=== PATIENT | female | born 1980 | race Caucasian/White ===

== ENCOUNTER 2017-05-21 11:17 | Emergency (ER) | payer BC, OTHER ==
[2017-05-21] MEDS ORDERED: SODIUM CHLORIDE 0.9% 1,000 ML IV STA (11:52)
[2017-05-21] MEDS ORDERED: ONDANSETRON 4 MG/2 ML VIAL IVP STA (11:52)
[2017-05-21] MEDS ORDERED: HYDROmorphone 1 MG/ML 1 ML SYRINGE IVP STA ×2 (11:52→14:59)
--- NOTE | 2017-05-21 11:54 | ED ---
General Adult HPI - General Chief complaint: Abdominal Pain Stated complaint: Abd.pain-came from [facility] Time Seen by Provider: 05/21/17 11:41 Source: patient, RN notes reviewed Mode of arrival: ambulatory Limitations: no limitations - History of Present Illness Initial comments: Patient 37-year-old female who presents emergency room today with chief complaint of lower abdominal pain that started this morning. Patient does admit to pain that comes and goes. She states located lower abdomen. Does admit that she feels a little bit of pain in the right side of her lower back as well. She denies any injury or any trauma. States that she's currently on her menstrual cycle and this feels somewhat similar to cramps but much more severe. Patient denies any other complaints or symptoms. Patient denies any recent fever, chills, shortness of breath, chest pain, back pain, numbness or tingling, dysuria or hematuria, constipation or diarrhea, headaches or visual changes, or any other complaints. - Related Data Home Medications Medication Instructions Recorded Confirmed Thyroid,Pork [[place] Thyroid] 60 mg PO DAILY 05/21/17 05/21/17 Previous Rx's Medication Instructions Recorded Hydrocodone/Acetaminophen [[place] 1 each PO Q6HR PRN #20 tab 05/21/17 5-325] Ibuprofen [Motrin] 800 mg PO Q6HR #30 tab 05/21/17 Ondansetron Odt [Zofran ODT] 4 mg PO Q8HR PRN #20 tab 05/21/17 Allergies Allergy/AdvReac Type Severity Reaction Status Date / Time No Known Allergies Allergy Verified 05/21/17 11:39 Review of Systems ROS Statement: Those systems with pertinent positive or pertinent negative responses have been documented in the HPI. ROS Other: All systems not noted in ROS Statement are negative. Past Medical History Past Medical History: No Reported History History of Any Multi-Drug Resistant Organisms: None Reported Past Surgical History: Section Past Psychological History: No Psychological Hx Reported Smoking Status: Never smoker Past Alcohol Use History: None Reported Past Drug Use History: None Reported General Exam - General Exam Comments Initial Comments: General: The patient is awake and alert, in mild distress. Eye: Pupils are equal, round and reactive to light, extra-ocular movements are intact. No nystagmus. There is normal conjunctiva bilaterally. No signs of icterus. Ears, nose, mouth and throat: There are moist mucous membranes and no oral lesions. Neck: The neck is supple, there is no tenderness or JVD. Cardiovascular: There is a regular rate and rhythm. No murmur, rub or gallop is appreciated. Respiratory: Lungs are clear to auscultation, respirations are non-labored, breath sounds are equal. No wheezes, stridor, rales, or rhonchi. Gastrointestinal: Normal appearance abdomen. Normal bowel sounds. Abdomen soft on palpation per patient does have tenderness minimal lower abdomen. No rebound or guarding. No CVA tenderness. Musculoskeletal: Normal ROM, no tenderness. Strength 5/5. Sensation intact. Pulses equal bilaterally 2+. Neurological: A&O x 3. CN II-XII intact, There are no obvious motor or sensory deficits. Coordination appears grossly intact. Speech is normal. Skin: Skin is warm and dry and no rashes or lesions are noted. Psychiatric: Cooperative, appropriate mood & affect, normal judgment. Limitations: no limitations Course Vital Signs 05/21/17 05/21/17 11:22 13:38 Temperature 97.0 F L Pulse Rate 95 54 L Respiratory 18 20 Rate Blood Pressure 182/86 138/59 O2 Sat by Pulse 95 97 Oximetry Medical Decision Making - Medical Decision Making Case discussed in detail with attending physician Dr. Singletary. Patient's ultrasound reviewed and does show possible ovarian cyst on the right. Patient CT of the abdomen and pelvis shows gallstones no evidence of cholecystitis. Patient has no pain in the right upper quadrant. Tenderness lower abdomen patient is currently on her menstrual cycle. She denies any complains currently. Patient will be treated for ovarian cyst advised follow-up the family doctor over the next 2 days. Return to the emergency room symptoms increase or worsen or for any concerns - Lab Data Result diagrams: 05/21/17 11:58 05/21/17 11:58 Lab Results 05/21/17 05/21/17 05/21/17 Range/Units 11:58 11:58 11:58 WBC 8.0 (3.8-10.6) k/uL RBC 4.60 (3.80-5.40) m/uL Hgb 13.7 (11.4-16.0) gm/dL Hct 41.4 (34.0-46.0) % MCV 90.0 (80.0-100.0) fL MCH 29.7 (25.0-35.0) pg MCHC 33.0 (31.0-37.0) g/dL RDW 13.1 (11.5-15.5) % Plt Count 258 (150-450) k/uL Neutrophils % 63 % Lymphocytes % 26 % Monocytes % 5 % Eosinophils % 3 % Basophils % 1 % Neutrophils # 5.1 (1.3-7.7) k/uL Lymphocytes # 2.1 (1.0-4.8) k/uL Monocytes # 0.4 (0-1.0) k/uL Eosinophils # 0.2 (0-0.7) k/uL Basophils # 0.1 (0-0.2) k/uL Sodium 139 (137-145) mmol/L Potassium 4.2 (3.5-5.1) mmol/L Chloride 103 (98-107) mmol/L Carbon Dioxide 28 (22-30) mmol/L Anion Gap 8 mmol/L BUN 14 (7-17) mg/dL Creatinine 0.81 (0.52-1.04) mg/dL Est GFR (MDRD) Af Amer >60 (>60 ml/min/1.73 sqM) Est GFR (MDRD) Non-Af >60 (>60 ml/min/1.73 sqM) Glucose 122 H (74-99) mg/dL Calcium 9.5 (8.4-10.2) mg/dL Total Bilirubin 0.3 (0.2-1.3) mg/dL AST 26 (14-36) U/L ALT 39 (9-52) U/L Alkaline Phosphatase 60 (38-126) U/L Total Protein 7.1 (6.3-8.2) g/dL Albumin 4.1 (3.5-5.0) g/dL Amylase 40 (30-110) U/L Lipase 110 (23-300) U/L Urine Color Urine Appearance (Clear) Urine pH (5.0-8.0) Ur Specific [place] (1.001-1.035) Urine Protein (Negative) Urine Glucose (UA) (Negative) Urine Ketones (Negative) Urine Blood (Negative) Urine Nitrite (Negative) Urine Bilirubin (Negative) Urine Urobilinogen (<2.0) mg/dL Ur Leukocyte Esterase (Negative) Urine HCG, Qual Not Detected (Not Detectd) 05/21/17 Range/Units 11:58 WBC (3.8-10.6) k/uL RBC (3.80-5.40) m/uL Hgb (11.4-16.0) gm/dL Hct (34.0-46.0) % MCV (80.0-100.0) fL MCH (25.0-35.0) pg MCHC (31.0-37.0) g/dL RDW (11.5-15.5) % Plt Count (150-450) k/uL Neutrophils % % Lymphocytes % % Monocytes % % Eosinophils % % Basophils % % Neutrophils # (1.3-7.7) k/uL Lymphocytes # (1.0-4.8) k/uL Monocytes # (0-1.0) k/uL Eosinophils # (0-0.7) k/uL Basophils # (0-0.2) k/uL Sodium (137-145) mmol/L Potassium (3.5-5.1) mmol/L Chloride (98-107) mmol/L Carbon Dioxide (22-30) mmol/L Anion Gap mmol/L BUN (7-17) mg/dL Creatinine (0.52-1.04) mg/dL Est GFR (MDRD) Af Amer (>60 ml/min/1.73 sqM) Est GFR (MDRD) Non-Af (>60 ml/min/1.73 sqM) Glucose (74-99) mg/dL Calcium (8.4-10.2) mg/dL Total Bilirubin (0.2-1.3) mg/dL AST (14-36) U/L ALT (9-52) U/L Alkaline Phosphatase (38-126) U/L Total Protein (6.3-8.2) g/dL Albumin (3.5-5.0) g/dL Amylase (30-110) U/L Lipase (23-300) U/L Urine Color Yellow Urine Appearance Clear (Clear) Urine pH 6.0 (5.0-8.0) Ur Specific [place] 1.031 (1.001-1.035) Urine Protein Trace H (Negative) Urine Glucose (UA) Negative (Negative) Urine Ketones Negative (Negative) Urine Blood Negative (Negative) Urine Nitrite Negative (Negative) Urine Bilirubin Negative (Negative) Urine Urobilinogen <2.0 (<2.0) mg/dL Ur Leukocyte Esterase Negative (Negative) Urine HCG, Qual (Not Detectd) Disposition Clinical Impression: Ovarian cyst Disposition: HOME SELF-CARE Condition: Good Instructions: Ovarian Cyst (ED) Additional Instructions: Please use medication as discussed. Please follow-up with family doctor in the next 2 days of symptoms have not improved. Please return to emergency room if the symptoms increase or worsen or for any other concerns. Prescriptions: Hydrocodone/Acetaminophen [[place] 5-325] 1 each PO Q6HR PRN #20 tab PRN Reason: Pain Ibuprofen [Motrin] 800 mg PO Q6HR #30 tab Ondansetron Odt [Zofran ODT] 4 mg PO Q8HR PRN #20 tab PRN Reason: Nausea Referrals: Jazmin May MD [Primary Care Provider] - 1-2 days Time of Disposition: 15:03
[2017-05-21 12:12] LABS: Basophils # (A) 0.1 k/uL (0-0.2); Basophils % (A) 1 %; CH 29.9; CHCM 33.4; Eosinophils # (A) 0.2 k/uL (0-0.7); Eosinophils % (A) 3 %; HCT 41.4 % (34.0-46.0); HDW 2.42; HGB 13.7 gm/dL (11.4-16.0); Luc # (Auto) 0.17; Luc % (Auto) 2; Lymphocytes # (A) 2.1 k/uL (1.0-4.8); Lymphocytes % (A) 26 %; MCH 29.7 pg (25.0-35.0); Mean Platelet Volume 7.5; Monocytes # (A) 0.4 k/uL (0-1.0); Monocytes % (A) 5 %; Neutrophils # (A) 5.1 k/uL (1.3-7.7); Neutrophils % (A) 63 %; RDW 13.1 % (11.5-15.5); WBC (Perox) 8.03
[2017-05-21 12:16] LABS: Appearance,Urine Clear (Clear); Bilirubin,Urine Negative (Negative); Glucose,Urine (UA) Negative (Negative); Ketones,Urine Negative (Negative); Leukocyte Esterase,Urine Negative (Negative); Nitrite,Urine Negative (Negative); Protein,Urine Trace (Negative); Specific Gravity,Urine 1.031 (1.001-1.035); UA Billing (MACRO vs. MICRO) CHEM; Urobilinogen,Urine <2.0 mg/dL (<2.0)
[2017-05-21 12:21] LABS: ALT 39 U/L (9-52); AST 26 U/L (14-36); Alkaline Phosphatase 60 U/L (38-126); Amylase 40 U/L (30-110); Anion Gap 8 mmol/L; Blood Urea Nitrogen 14 mg/dL (7-17); Calcium 9.5 mg/dL (8.4-10.2); Carbon Dioxide 28 mmol/L (22-30); Chloride 103 mmol/L (98-107); Glucose 122 mg/dL (74-99); Non-African American GFR(MDRD) >60 (>60 ml/min/1.73 sqM); Potassium 4.2 mmol/L (3.5-5.1); Sodium 139 mmol/L (137-145); Total Bilirubin 0.3 mg/dL (0.2-1.3); Total Protein 7.1 g/dL (6.3-8.2)
--- NOTE | 2017-05-21 13:31 | US ---
EXAMINATION TYPE: US transvaginal DATE OF EXAM: 05/21/2017 COMPARISON: NONE CLINICAL HISTORY: pain,cramping TECHNIQUE: Transvaginal (TV) Date of LMP: yesterday, however previous LMP 6 months ago EXAM MEASUREMENTS: Uterus: 10.0 x 4.3 x 5.4 cm Endometrial Stripe: 1.3 cm Right Ovary: 3.0 x 2.7 x 2.8 cm Left Ovary: 3.7 x 2.1 x 1.8 cm 1. Uterus: wnl 2. Endometrium: hypoechoic area in endocervical canal and JAKE, probable blood measuring 1.7cm 3. Right Ovary: wnl 4. Left Ovary: wnl Spectral, color and waveform doppler imaging shows good arterial and venous flow within the ovaries . 5. Bilateral Adnexa: wnl 6. Posterior cul-de-sac: wnl Uterus is markedly heterogeneous. Endometrium is poorly defined measuring up to 13 mm in thickness. M ore prominent hypoechoic area centrally lower uterine segment could reflect residual blood product. N o free fluid is seen in pelvis. Both ovaries are seen. Right ovary is slightly more rounded, cannot exclude 2.9 cm hemorrhagic cyst a t this level. IMPRESSION: Suspect some residual blood product in the central endometrium lower uterine segment. A dvise ultrasound follow-up to further assess right ovary in 6 weeks' time.
--- NOTE | 2017-05-21 14:53 | CT ---
EXAMINATION TYPE: CT abdomen pelvis wo con DATE OF EXAM: 05/21/2017 COMPARISON: NONE HISTORY: 37-year-old female Patient complains of RLQ pain. CT DLP: 1341.5 mGycm. Automated exposure control for dose reduction was used. TECHNIQUE: Contiguous axial scanning of the abdomen and pelvis without IV contrast. Coronal and sagit aramis reconstructions performed. FINDINGS: The heart is normal size without pericardial effusion. Lung bases clear without pleural effusion. Liver is enlarged measuring 21.6 cm craniocaudal. Otherwise, the noncontrast appearance of the adrena l glands patella kidneys, spleen, and pancreas show no gross abnormality. No dilated small bowel, free fluid, or free air. No mesenteric or retroperitoneal lymphadenopathy. Normal appendix. Mild to moderate stool burden. No pericolonic inflammatory change. Numerous gallstones are present, largest seems to measure 1.9 cm. No abnormal gallbladder distention. Bladder under distended. Uterus and ovaries are visualized with follicular change. No abnormal fluid collection in the pelvis or pelvic lymphadenopathy seen. Bones: Mild degenerative changes of the hips. Additional facet arthropathy in the lower lumbar spine with degenerative disc disease L5-S1. IMPRESSION: 1. Cholelithiasis. No CT findings of acute cholecystitis at this time. If further imaging evaluation is clinically warranted, ultrasound or HIDA scan could be performed. 2. Hepatomegaly.
[2017-05-21] MEDS ORDERED: KETOROLAC 30 MG/ML 1 ML VIAL IVP STA (14:59)
[2017-05-21 17:01] VITALS: BP 136/80; PULSE 78; RESP 18; TEMP 98.6
== END 2017-05-21 16:45 | disposition home or self-care (01) ==
LOC: EC 11:17
DX: N83.201 Unspecified ovarian cyst, right side (principal); K80.20 Calculus of gallbladder without cholecystitis without obstruction; Z98.890 Other specified postprocedural states; Z79.899 Other long term (current) drug therapy
CPT/HCPCS: 36415; 86900; 86901; 80053; 82150; 83690; 85025; 86850; 81003; 81025; 93975; 76830; 74176; 99284; 96374; 96375 ×2; 96376; 96361; J2405; J1885; J1170

== ENCOUNTER → 2020-06-07 | Outpatient (CLI) | payer BC | END | disposition home or self-care (01) | LOC: LABWHC1 12:50 | PROVIDERS: ATTEND Family Medicine | DX: Z20.828 Contact with and (suspected) exposure to other viral communicable diseases (principal) | CPT/HCPCS: U0003; C9803 ==